=== PATIENT | female | born 1985 | race Caucasian/White ===

== ENCOUNTER 2017-08-27 19:32 | Observation (INO) ==
--- NOTE | 2017-08-27 19:57 | Emergency Department Note ---
Disposition Clinical Impression: Acute cholecystitis, Cholelithiasis Abdominal pain Qualifiers: Abdominal location: epigastric Qualified Code(s): R10.13 - Epigastric pain Disposition: Admitted As Inpatient Condition: Good Referrals: George Colon MD [Primary Care Provider] - Forms: ED Satisfaction Letter, Work/School Release Time of Disposition: 01:15 Abdominal Pain HPI - General Chief Complaint: ED Abdominal Pain Stated Complaint: abdominal pain Time Seen by Provider: 08/27/17 19:55 - History of Present Illness HPI Narrative: 31F c PMHx of PCOS reports to the ED c/o dull achy abdominal pain x 16 hours. Patient reports pain woke her up from sleep at 4am. She reports some nausea, but denies vomiting, Diarrhea, hemaochezia, dysuria, fever, chills. Patient reports she has never had anything like this. She reports she has had burst ovarian cysts in the past but pain was low in abdomen and felt different. She denies any prior surgeries. She reports he mom had her gallbladder removed. Pt Subjective Complaint: abdominal pain Onset (ago): hour(s) (16) Consistency: constant Location: epigastric Pain Scale: 8 Quality: dull Radiation: LUQ, RUQ Migration to: no migration Improves with: nothing Worsens with: nothing Associated symptoms: Reports: nausea. Denies: vomiting, diarrhea, fever, chills , constipation, hematemesis, hematochezia, melena, hematuria, anorexia Treatments prior to arrival: antacids, other (Pepto bismal) - Related Data Allergies Allergy/AdvReac Type Severity Reaction Status Date / Time No Known Allergies Allergy Verified 08/27/17 19:35 All systems ED: reviewed and negative except as stated. Review of Systems: As Per HPI Physical Exam - General Limitations: no limitations General appearance: alert, in no apparent distress - Head Head exam: atraumatic, normocephalic - Eye Eye exam: Present: PERRL, EOMI - ENT ENT exam: normal oropharynx, mucous membranes moist - Neck Neck exam: Present: full ROM. Absent: trachea midline - Chest Chest inspection: Present: symmetric chest wall rise. Absent: tenderness - Respiratory Respiratory exam: Present: normal lung sounds bilaterally. Absent: respiratory distress - Cardiovascular Cardiovascular exam: Present: regular rate, normal rhythm, normal heart sounds - Abdominal Exam Abdominal exam: Present: soft, tenderness Abdominal tenderness: Present: RUQ, LUQ, epigastrium - Extremities Exam Extremities exam: Present: full ROM. Absent: pedal edema - Neurological Exam Neurological exam: Present: alert, oriented X3 - Psychiatric Psychiatric exam: Present: normal affect, normal mood - Skin Skin exam: Present: warm, dry Course Course Narrative: Will check CBC, CMP, Lipase, CT abd/pelvis - Reevaluation(s) Reevaluation #1: Right upper quadrant ultrasound confirms acute cholecystitis. Dr. ireland has accepted the patient to his service. Vital Signs Temperature 97.8 F 08/27/17 19:35 Pulse Rate 90 08/27/17 19:35 Respiratory Rate 17 08/27/17 19:35 Blood Pressure 125/84 08/27/17 19:35 O2 Sat by Pulse Oximetry 96 08/27/17 19:35 Temperature 97.8 F 08/27/17 19:35 Pulse Rate 76 08/28/17 00:51 Respiratory Rate 18 08/28/17 00:51 Blood Pressure 134/58 08/28/17 00:51 O2 Sat by Pulse Oximetry 98 08/28/17 00:51 Oxygen Delivery Oxygen Delivery Room Air Abdominal Pain - Lab Data Result diagrams: 08/27/17 21:05 08/27/17 21:05 Lab Results 08/27/17 08/27/17 08/27/17 Range/Units 19:52 19:52 21:05 WBC 17.0 H (4.3-11.1) K/mcL RBC 4.83 (3.82-4.97) M/mcL Hgb 11.5 (11.5-15.4) g/dL Hct 37.3 (35.3-44.9) % MCV 77.2 L (83.0-100.0) fL MCH 23.8 L (28.0-33.3) pg MCHC 30.8 L (31.6-35.5) g/dL RDW 18.1 H (11.5-14.5) % Plt Count 331 (140-400) K/mcL MPV 9.5 (9.4-12.4) fL Immature Gran % 0.5 (0-4) % Seg Neutrophils % 76.9 % Lymphocytes % 17.2 % Monocytes % 5.1 % Eosinophils % 0.1 % Basophils % 0.2 % Neutrophils # 13.0 H (1.6-8.9) K/mcL Lymphocytes # 2.9 (0.6-4.6) K/mcL Monocytes # 0.9 (0.0-1.3) K/mcL Eosinophils # 0.0 (0.0-0.6) K/mcL Basophils # 0.0 (0.0-0.2) K/mcL Sodium (136-145) mEq/L Potassium (3.5-5.1) mEq/L Chloride (98-107) mEq/L Carbon Dioxide (23-29) mEq/L BUN (6-20) mg/dL Creatinine (0.60-1.20) mg/dL Est GFR ( Amer) (> 60) Est GFR (Non-Af Amer) (> 60) BUN/Creatinine Ratio (6-26) Glucose (70-105) mg/dL Calculated Osmolality (280-300) Calcium (8.6-10.3) mg/dL Total Bilirubin (0.3-1.0) mg/dL AST (13-39) Units/L ALT (7-52) Units/L Alkaline Phosphatase (34-104) Units/L Serum Total Protein (6.4-8.9) g/dL Albumin (3.5-5.7) g/dL Globulin (2.4-3.5) g/dL Albumin/Globulin Ratio (1.1-2.2) Lipase (11-82) Units/L Urine Color Yellow (Yellow) Urine Clarity Clear (Clear) Urine pH 6.0 (5.0-8.0) pH Units Ur Specific [place] > 1.030 H (1.010-1.025) Urine Protein Trace (Neg-Trace) mg/dL Urine Glucose (UA) Normal (Normal) mg/dL Urine Ketones 80 H (Negative) mg/dL Urine Blood Negative (Negative) Urine Nitrite Negative (Negative) Urine Bilirubin Negative (Negative) Urine Urobilinogen Normal (Normal) mg/dL Ur Leukocyte Esterase Small H (Negative) Urine Microscopic RBC 3-5 H (0-3) per hpf Urine Microscopic WBC 15-30 H (0-3) per hpf Ur Squamous Epith Cells Many H (None-Few) per lpf Urine Bacteria Moderate H (None-Few) per hpf Hyaline Casts None Seen (None-Few) per lpf Urine Mucus Moderate H (Few) Urine Yeast Few H (None Seen) per hpf Ur Culture Indicated? NO. A (NO) Urine Test Negative (Negative) 08/27/17 Range/Units 21:05 WBC (4.3-11.1) K/mcL RBC (3.82-4.97) M/mcL Hgb (11.5-15.4) g/dL Hct (35.3-44.9) % MCV (83.0-100.0) fL MCH (28.0-33.3) pg MCHC (31.6-35.5) g/dL RDW (11.5-14.5) % Plt Count (140-400) K/mcL MPV (9.4-12.4) fL Immature Gran % (0-4) % Seg Neutrophils % % Lymphocytes % % Monocytes % % Eosinophils % % Basophils % % Neutrophils # (1.6-8.9) K/mcL Lymphocytes # (0.6-4.6) K/mcL Monocytes # (0.0-1.3) K/mcL Eosinophils # (0.0-0.6) K/mcL Basophils # (0.0-0.2) K/mcL Sodium 135 L (136-145) mEq/L Potassium 3.5 (3.5-5.1) mEq/L Chloride 105 (98-107) mEq/L Carbon Dioxide 22 L (23-29) mEq/L BUN 8 (6-20) mg/dL Creatinine 0.70 (0.60-1.20) mg/dL Est GFR ( Amer) > 60 (> 60) Est GFR (Non-Af Amer) > 60 (> 60) BUN/Creatinine Ratio 11 (6-26) Glucose 103 (70-105) mg/dL Calculated Osmolality 279 L (280-300) Calcium 9.1 (8.6-10.3) mg/dL Total Bilirubin 0.5 (0.3-1.0) mg/dL AST 14 (13-39) Units/L ALT 12 (7-52) Units/L Alkaline Phosphatase 56 (34-104) Units/L Serum Total Protein 7.2 (6.4-8.9) g/dL Albumin 4.0 (3.5-5.7) g/dL Globulin 3.2 (2.4-3.5) g/dL Albumin/Globulin Ratio 1.3 (1.1-2.2) Lipase 15 (11-82) Units/L Urine Color (Yellow) Urine Clarity (Clear) Urine pH (5.0-8.0) pH Units Ur Specific [place] (1.010-1.025) Urine Protein (Neg-Trace) mg/dL Urine Glucose (UA) (Normal) mg/dL Urine Ketones (Negative) mg/dL Urine Blood (Negative) Urine Nitrite (Negative) Urine Bilirubin (Negative) Urine Urobilinogen (Normal) mg/dL Ur Leukocyte Esterase (Negative) Urine Microscopic RBC (0-3) per hpf Urine Microscopic WBC (0-3) per hpf Ur Squamous Epith Cells (None-Few) per lpf Urine Bacteria (None-Few) per hpf Hyaline Casts (None-Few) per lpf Urine Mucus (Few) Urine Yeast (None Seen) per hpf Ur Culture Indicated? (NO) Urine Test (Negative)
[2017-08-27 20:16] LABS: Bilirubin,Urine Negative (Negative); Blood,Urine Negative (Negative); Clarity,Urine Clear (Clear); Color,Urine Yellow (Yellow); Glucose,Urine (UA) Normal (Normal); Ketones,Urine 80 mg/dL (Negative); Leukocyte Esterase,Urine Small (Negative); Nitrite,Urine Negative (Negative); Protein,Urine Trace mg/dL (Neg-Trace); Specific Gravity,Urine > 1.030 (1.010-1.025); Urobilinogen,Urine Normal (Normal)
[2017-08-27 20:19] LABS: Bacteria,Urine Moderate per hpf (None-Few); Hyaline Casts,Urine None Seen per lpf (None-Few); Squamous Epithelial Cell,Urine Many per lpf (None-Few); WBC,Urine 15-30 per hpf (0-3)
[2017-08-27 20:49] LABS: Mucus,Urine Moderate (Few); Yeast,Urine Few per hpf (None Seen)
[2017-08-27 21:17] LABS: Basophils % 0.2 %; Eosinophils % 0.1 %; Hematocrit 37.3 % (35.3-44.9); Hemoglobin 11.5 g/dL (11.5-15.4); Immature Granulocytes % 0.5 % (0-4); Lymphocytes # 2.9 K/mcL (0.6-4.6); Lymphocytes % 17.2 %; Mean Corpuscular HGB Conc 30.8 g/dL (31.6-35.5); Mean Corpuscular Hemoglobin 23.8 pg (28.0-33.3); Mean Corpuscular Volume 77.2 fL (83.0-100.0); Mean Platelet Volume 9.5 fL (9.4-12.4); Monocytes # 0.9 K/mcL (0.0-1.3); Monocytes % 5.1 %; Platelet Count 331 K/mcL (140-400); Red Blood Count 4.83 M/mcL (3.82-4.97); Red Cell Distribution Width 18.1 % (11.5-14.5); Segmented Neutrophils % 76.9 %
[2017-08-27 21:37] LABS: Alanine Aminotransferase 12 Units/L (7-52); Albumin/Globulin Ratio 1.3 (1.1-2.2); Alkaline Phosphatase 56 Units/L (34-104); Aspartate Amino Transferase 14 Units/L (13-39); BUN/Creatinine Ratio 11 (6-26); Bilirubin,Total 0.5 mg/dL (0.3-1.0); Blood Urea Nitrogen 8 mg/dL (6-20); Calcium 9.1 mg/dL (8.6-10.3); Carbon Dioxide 22 mEq/L (23-29); Chloride 105 mEq/L (98-107); Globulin 3.2 g/dL (2.4-3.5); Glucose 103 mg/dL (70-105); Lipase 15 Units/L (11-82); Osmolality,Calculated 279 (280-300); Potassium 3.5 mEq/L (3.5-5.1); Sodium 135 mEq/L (136-145); Total Protein 7.2 g/dL (6.4-8.9); eGFR For African Americans > 60 (> 60); eGFR For Non-African Americans > 60 (> 60)
[2017-08-27] MEDS ORDERED: GI Cocktail 40 ML EACH PO ONE (21:49)
--- NOTE | 2017-08-27 22:42 | Emergency Department Note ---
START Narrative - START START: I examined this patient and my medical decision-making was reviewed with the Resident Physician. I agree with the documented findings, disposition and treatment plan as described except to the extent set forth below. 31-year-old female presents emergency room for upper abdominal pain to the epigastric and right upper quadrant region. Started earlier today yesterday. States she does not want to eat or drink much. Her CT today did not show any significant findings other than she has a known left ovarian cyst which she knows about. No significant lab findings. We will order a galbladder ultrasound. etiologies include possible biliary colic vs PUD
[2017-08-28] MEDS ORDERED: Ondansetron 4 MG/2 ML VIAL IVP ONE ×2 (01:14→19:05)
[2017-08-28] MEDS ORDERED: *HR* FentaNYL (PF) 100 MCG/2 ML VIAL IVP ONE (01:14)
[2017-08-28] MEDS ORDERED: 0.9 % Sodium Chloride 500 ML IVC ONE (02:03)
[2017-08-28] MEDS ORDERED: OXYCODONE Oral CONC 10 MG/0.5 ML ORAL.SYG SL PRN (02:07)
[2017-08-28] MEDS ORDERED: Ondansetron 4 MG/2 ML VIAL IVP PRN ×2 (02:08→20:07)
[2017-08-28] MEDS: Piperacillin/Tazobactam 3.375 GM in 0.9 % Sodium Chloride Mini Bag 100 ML IVPB SCH ×3 (02:30→21:26)
[2017-08-28] MEDS: 0.9 % Sodium Chloride 1,000 ML IVC SCH ×2 (06:04→21:26)
--- NOTE | 2017-08-28 13:03 | General Surg History&Physical ---
Date of Encounter: 08/28/17 Time of Encounter: 07:00 History of Present Illness Chief complaint: Right upper quadrant abdominal pain, acute cholecystitis, cholelithiasis HPI: Ms. Tapia is a 31 year old referred further surgical evaluation after presenting to the [facility] ED with new, abrupt onset abdominal pain early a.m., 08/27. The patient describes progressive pain with anorexia but no emesis. The patient presented to the emergency department after the pain became "unbearable ". There is no recent history of fevers, chills, or diarrhea. On evaluation in the emergency department, patient was notably tender in the right upper quadrant and white count of 17.0, 13.0 neutrophils. Electrolytes, BUN, creatinine, LFTs were all within normal limits. CT abdomen/pelvis was notable for mild atelectasis, suggestion of sludge or tiny stones within the gallbladder ; bowel pattern appeared to be grossly normal; 7.2 x 7.2 cm simple appearing cystic lesion anterior to the uterus adjacent to the left ovary. USGB confirm the presence of cholelithiasis with hydropic distention of the gallbladder and trace pericholecystic fluid. These findings were consistent with acute cholecystitis due to cholelithiasis prompting a referral for surgical intervention. The patient has been admitted to the hospital for further evaluation and surgical intervention. Past medical history: Unremarkable; the patient is aware of the cystic lesion adjacent to the left ovary as she is being seen and evaluated by a fertility specialist. Surgical history: Tonsillectomy and bilateral myringotomies in the remote past Allergies: No known drug allergies Medications: Patient takes no routine medications at home. Social history: G1, P1, normal vaginal delivery; patient has never smoked; she admits to rare alcoholic beverage; she denies any illicit drug use Family history: Mother with cholecystectomy approximately 1 year ago Physical examination: Morbidly obese, age-appropriate female resting comfortably in her hospital bed. He acute symptoms prompting the patient's presentation to the emergency department have subsided. The patient is 1.75 m tall, 143.97 kg; BMI 46.9 The patient is afebrile, most recently 97.9, pulse 82, respirations 14, blood pressure 104/73; SPO2 on room air 93% Skin: Warm, no obvious jaundice Lungs: Clear bilaterally; no obvious abdominal pain with deep inspiration Cardiac: Regular rate, no appreciable murmurs Abdomen: Obese with minimal tenderness in the right upper quadrant. No discernible intra-abdominal masses, hepatosplenomegaly, or rebound. Active bowel sounds Extremities: No obvious clubbing, cyanosis, or edema. CT abdomen/pelvis and ultrasound gallbladder were reviewed with [facility] Labs were reviewed Impression: 31-year-old female referred for further surgical evaluation of abrupt onset right upper quadrant abdominal pain. Clinical findings consistent with acute cholecystitis, cholelithiasis. The of acute symptoms have subsided but not completely resolved. Surgery is recommended. The patient is a reasonable candidate for laparoscopic cholecystectomy but understands an open cholecystectomy may become necessary. Risks of surgery include hemorrhage, infection, intra- abdominal abscess, bile leak, injury to adjacent ducts, vessels, organs, or bowel. Possible postcholecystectomy diarrhea may develop. Other risks include pneumonia/respiratory failure; cardiac dysrhythmia. The patient expressed understanding and is willing to proceed. Surgery has been scheduled for later today. Surgical consent has been obtained. Past Med Surg Social Fam HX - Past Medical History Psychiatric history: no psych history - Social History Smoking Status: Never smoker Alcohol use: occasionally Drug use: none - Family History Maternal Grandmother Hx Family Medical Disorders: Yes (malignant hyperthermia) Medications and Allergies Metformin HCl [Metformin HCl ER] 500 mg PO BID 08/28/17 [History] 3 Allergy/AdvReac Type Severity Reaction Status Date / Time No Known Allergies Allergy Verified 08/27/17 19:35 Review of Systems All systems PM: The remainder of the systems were reviewed and are negative General Surgery Exam Initial Vital Signs Temp Pulse Resp BP Pulse Ox 97.8 F 90 17 125/84 96 08/27/17 19:35 08/27/17 19:35 08/27/17 19:35 08/27/17 19:35 08/27/17 19:35 Results - Labs 08/27/17 21:05 08/27/17 21:05 Abnormal lab results WBC 17.0 K/mcL (4.3-11.1) H 08/27/17 21:05 MCV 77.2 fL (83.0-100.0) L 08/27/17 21:05 MCH 23.8 pg (28.0-33.3) L 08/27/17 21:05 MCHC 30.8 g/dL (31.6-35.5) L 08/27/17 21:05 RDW 18.1 % (11.5-14.5) H 08/27/17 21:05 Neutrophils # 13.0 K/mcL (1.6-8.9) H 08/27/17 21:05 Sodium 135 mEq/L (136-145) L 08/27/17 21:05 Carbon Dioxide 22 mEq/L (23-29) L 08/27/17 21:05 Calculated Osmolality 279 (280-300) L 08/27/17 21:05 Ur Specific [place] > 1.030 (1.010-1.025) H 08/27/17 19:52 Urine Ketones 80 mg/dL (Negative) H 08/27/17 19:52 Ur Leukocyte Esterase Small (Negative) H 08/27/17 19:52 Urine Microscopic RBC 3-5 per hpf (0-3) H 08/27/17 19:52 Urine Microscopic WBC 15-30 per hpf (0-3) H 08/27/17 19:52 Ur Squamous Epith Cells Many per lpf (None-Few) H 08/27/17 19:52 Urine Bacteria Moderate per hpf (None-Few) H 08/27/17 19:52 Urine Mucus Moderate (Few) H 08/27/17 19:52 Urine Yeast Few per hpf (None Seen) H 08/27/17 19:52 Ur Culture Indicated? NO. (NO) A 08/27/17 19:52 All other labs normal.
[2017-08-28] MEDS ORDERED: *HR* Midazolam HCl 2 MG/2 ML VIAL ONE (16:21)
[2017-08-28] MEDS ORDERED: *HR* Propofol 200 MG/20 ML VIAL IVP ONE (16:21)
[2017-08-28] MEDS ORDERED: *HR* FentaNYL (PF) 100 MCG/2 ML VIAL ONE (16:21)
[2017-08-28] MEDS ORDERED: *HR* Rocuronium Bromide 50 MG/5 ML VIAL ONE (16:22)
[2017-08-28] MEDS ORDERED: Dexamethasone 4 MG/ML VIAL ONE (16:22)
[2017-08-28] MEDS ORDERED: Lidocaine -MPF 2% 2 ML VIAL ONE (16:22)
[2017-08-28] MEDS ORDERED: Ondansetron 4 MG/2 ML VIAL ONE (16:22)
[2017-08-28] MEDS ORDERED: *HR* Succinylcholine 200 MG/10 ML VIAL IVP ONE (16:22)
[2017-08-28] MEDS ORDERED: Bupivacaine/EPI 1:200k 0.25%PF 10 ML VIAL INFILT ONE ×2 (16:24→18:17)
[2017-08-28] MEDS ORDERED: Lidocaine -MPF 4% 5 ML AMPUL ONE (16:27)
--- NOTE | 2017-08-28 16:48 | Anesthesia Evaluation PreOp ---
Date of Encounter: 08/28/17 Time of Encounter: 16:46 - Past History Planned Operation: Lap Rhoda Cardiac History: Denies any Significant Hx Pulmonary History: Denies Any Significant HX GEOMAGNETICIAN History: Denies Any Significant HX Other Medical History: Other (PCOS) Anesthesia History: No Prior Anesthetic Complications, Past Anesthesia (T&A, BMT ), MH (POSITIVE FamHx of MH in MATERNAL GRANDMOTHER) : No Test: Positive Alcohol Use: occasionally Drug use: none Medications and Allergies Metformin HCl [Metformin HCl ER] 500 mg PO BID 08/28/17 [History] 3 Allergy/AdvReac Type Severity Reaction Status Date / Time No Known Allergies Allergy Verified 08/27/17 19:35 - Meds/Allergy Pre-op Review Medications Reviewed: Yes Allergies Reviewed: Yes Beta Blockers on Current Med List: No Anesthesia Results - Labs 08/27/17 21:05 08/27/17 21:05 Vital Signs Temp Pulse Resp BP Pulse Ox 08/28/17 14:56 98.3 F 83 13 109/77 97 08/28/17 11:40 97.6 F 78 16 112/77 97 08/28/17 08:15 93 08/28/17 07:29 97.9 F 82 14 104/73 93 08/28/17 01:50 98.4 F 94 15 131/84 99 08/28/17 01:29 18 121/54 08/28/17 00:51 76 18 134/58 98 08/27/17 23:28 85 16 142/58 99 08/27/17 21:20 87 22 126/85 99 08/27/17 20:12 92 16 113/94 97 08/27/17 19:35 97.8 F 90 17 125/84 96 Intake and Output 08/28/17 08/28/17 08/28/17 07:59 15:59 23:59 Intake Total 600 / 600 Output Total 500 / 500 200 / 200 Balance 100 / 100 -200 / -200 Intake: IV Fluids 600 / 600 0.9 % Sodium Chloride 500 ML @ 500 / 500 1875 mls/hr IVC .Q16M ONE Rx#: [id number] Zosyn 3.375 GM In 0.9 % Sodium 100 / 100 Chloride (Mini-Bag +) 100 ML @ 25 mls/hr IVPB Q8HR [facility] Rx#: [id number] Output: Urine 500 / 500 200 / 200 Other: Meal NPO Weight 143.97 kg Blood Glucose* 115 98 Patient Weight 08/28/17 23:59 Weight 143.97 kg Laboratory Results WBC 17.0 K/mcL (4.3-11.1) H 08/27/17 21:05 RBC 4.83 M/mcL (3.82-4.97) 08/27/17 21:05 Hgb 11.5 g/dL (11.5-15.4) 08/27/17 21:05 Hct 37.3 % (35.3-44.9) 08/27/17 21:05 MCV 77.2 fL (83.0-100.0) L 08/27/17 21:05 MCH 23.8 pg (28.0-33.3) L 08/27/17 21:05 MCHC 30.8 g/dL (31.6-35.5) L 08/27/17 21:05 RDW 18.1 % (11.5-14.5) H 08/27/17 21:05 Plt Count 331 K/mcL (140-400) 08/27/17 21:05 MPV 9.5 fL (9.4-12.4) 08/27/17 21:05 Immature Gran % 0.5 % (0-4) 08/27/17 21:05 Seg Neutrophils % 76.9 % 08/27/17 21:05 Lymphocytes % 17.2 % 08/27/17 21:05 Monocytes % 5.1 % 08/27/17 21:05 Eosinophils % 0.1 % 08/27/17 21:05 Basophils % 0.2 % 08/27/17 21:05 Neutrophils # 13.0 K/mcL (1.6-8.9) H 08/27/17 21:05 Lymphocytes # 2.9 K/mcL (0.6-4.6) 08/27/17 21:05 Monocytes # 0.9 K/mcL (0.0-1.3) 08/27/17 21:05 Eosinophils # 0.0 K/mcL (0.0-0.6) 08/27/17 21:05 Basophils # 0.0 K/mcL (0.0-0.2) 08/27/17 21:05 Sodium 135 mEq/L (136-145) L 08/27/17 21:05 Potassium 3.5 mEq/L (3.5-5.1) 08/27/17 21:05 Chloride 105 mEq/L (98-107) 08/27/17 21:05 Carbon Dioxide 22 mEq/L (23-29) L 08/27/17 21:05 BUN 8 mg/dL (6-20) 08/27/17 21:05 Creatinine 0.70 mg/dL (0.60-1.20) 08/27/17 21:05 Est GFR ( Amer) > 60 (> 60) 08/27/17 21:05 Est GFR (Non-Af Amer) > 60 (> 60) 08/27/17 21:05 BUN/Creatinine Ratio 11 (6-26) 08/27/17 21:05 Glucose 103 mg/dL (70-105) 08/27/17 21:05 POC Glucose 98 mg/dL (70-99) 08/28/17 11:39 Calculated Osmolality 279 (280-300) L 08/27/17 21:05 Calcium 9.1 mg/dL (8.6-10.3) 08/27/17 21:05 Total Bilirubin 0.5 mg/dL (0.3-1.0) 08/27/17 21:05 AST 14 Units/L (13-39) 08/27/17 21:05 ALT 12 Units/L (7-52) 08/27/17 21:05 Alkaline Phosphatase 56 Units/L (34-104) 08/27/17 21:05 Serum Total Protein 7.2 g/dL (6.4-8.9) 08/27/17 21:05 Albumin 4.0 g/dL (3.5-5.7) 08/27/17 21:05 Globulin 3.2 g/dL (2.4-3.5) 08/27/17 21:05 Albumin/Globulin Ratio 1.3 (1.1-2.2) 08/27/17 21:05 Lipase 15 Units/L (11-82) 08/27/17 21:05 Urine Color Yellow (Yellow) 08/27/17 19:52 Urine Clarity Clear (Clear) 08/27/17 19:52 Urine pH 6.0 pH Units (5.0-8.0) 08/27/17 19:52 Ur Specific [place] > 1.030 (1.010-1.025) H 08/27/17 19:52 Urine Protein Trace mg/dL (Neg-Trace) 08/27/17 19:52 Urine Glucose (UA) Normal mg/dL (Normal) 08/27/17 19:52 Urine Ketones 80 mg/dL (Negative) H 08/27/17 19:52 Urine Blood Negative (Negative) 08/27/17 19:52 Urine Nitrite Negative (Negative) 08/27/17 19:52 Urine Bilirubin Negative (Negative) 08/27/17 19:52 Urine Urobilinogen Normal mg/dL (Normal) 08/27/17 19:52 Ur Leukocyte Esterase Small (Negative) H 08/27/17 19:52 Urine Microscopic RBC 3-5 per hpf (0-3) H 08/27/17 19:52 Urine Microscopic WBC 15-30 per hpf (0-3) H 08/27/17 19:52 Ur Squamous Epith Cells Many per lpf (None-Few) H 08/27/17 19:52 Urine Bacteria Moderate per hpf (None-Few) H 08/27/17 19:52 Hyaline Casts None Seen per lpf (None-Few) 08/27/17 19:52 Urine Mucus Moderate (Few) H 08/27/17 19:52 Urine Yeast Few per hpf (None Seen) H 08/27/17 19:52 Ur Culture Indicated? NO. (NO) A 08/27/17 19:52 Urine Test Negative (Negative) 08/27/17 19:52 Impressions Abdomen/Pelvis CT 08/27/17 20:42 IMPRESSION: 7.2 x 7.2 cm cystic lesion just anterior to the uterus abutting the left ovary. Findings may be ovarian in origin. Recommend further evaluation with ultrasound. No findings to account for patient's nausea. D/ / Jazmine Kunz MD / Jazmine Kunz MD Interpreting Provider: Jazmine Kunz MD Abdomen Ultrasound 08/27/17 22:26 IMPRESSION: Cholelithiasis with sonographic findings worrisome for early cholecystitis. D/ / Gera Martin MD / Gera Martin MD Interpreting Provider: Gera Martin MD Anesthesia Exam Vital Signs Temp Pulse Resp BP Pulse Ox 08/28/17 14:56 98.3 F 83 13 109/77 97 08/28/17 11:40 97.6 F 78 16 112/77 97 08/28/17 08:15 93 08/28/17 07:29 97.9 F 82 14 104/73 93 08/28/17 01:50 98.4 F 94 15 131/84 99 08/28/17 01:29 18 121/54 08/28/17 00:51 76 18 134/58 98 08/27/17 23:28 85 16 142/58 99 08/27/17 21:20 87 22 126/85 99 08/27/17 20:12 92 16 113/94 97 08/27/17 19:35 97.8 F 90 17 125/84 96 Intake and Output 08/28/17 08/28/17 08/28/17 07:59 15:59 23:59 Intake Total 600 / 600 Output Total 500 / 500 200 / 200 Balance 100 / 100 -200 / -200 Intake: IV Fluids 600 / 600 0.9 % Sodium Chloride 500 ML @ 500 / 500 1875 mls/hr IVC .Q16M ONE Rx#: [id number] Zosyn 3.375 GM In 0.9 % Sodium 100 / 100 Chloride (Mini-Bag +) 100 ML @ 25 mls/hr IVPB Q8HR [facility] Rx#: [id number] Output: Urine 500 / 500 200 / 200 Other: Meal NPO Weight 143.97 kg Blood Glucose* 115 98 Patient Weight 08/28/17 23:59 Weight 143.97 kg Height: 5'9" Weight: 317# BMI = 47 NPO (# of Hours): MNOc Pain Scale Used: Numeric (1 - 10) - HEENT Pupil (Motor): Pupils equal, EOMI Mallampati: II Teeth: Normal Oral Opening: Greater than 3 - GEOMAGNETICIAN LOC: Oriented GEOMAGNETICIAN Motor: Normal RUE, Normal LUE, Normal RLE, Normal LLE, Normal Face GEOMAGNETICIAN Sensory: Normal: RUE, LUE, RLE, LLE, Face - Cardiac Rhythm: Regular Murmur: None - Pulmonary Breath Sounds: bilateral Clear Respiratory Effort: Symmetrical Anesthesia Assess/Plan ASA Score: 3 ([place], PCOS +FamHx of ) Modified [place] Scale for Level of Consciousness: Cooperative, oriented, and tranquil Anesthetic Plan: General Monitoring Plan: Standard Monitors Recovery Plan: PACU Anes Supervising Prov Stmt: Pt seen/evaluated, R&B discussed questions answered and consent obtained. Raul Johnson MD
[2017-08-28] MEDS ORDERED: Isovue-300 50 ML VIAL IVP ONE (16:50)
[2017-08-28] MEDS ORDERED: Propofol 500 MG/50 ML INFUS..BTL ONE ×2 (17:06→19:03)
[2017-08-28] MEDS ORDERED: *HR* Remifentanil 2 MG VIAL IVP ONE (17:11)
[2017-08-28] MEDS ORDERED: Ketorolac 30 MG/ML VIAL ONE (18:51)
[2017-08-28] MEDS ORDERED: Neostigmine Methylsulfate 3 MG/3 ML SYRINGE ONE (18:51)
[2017-08-28] MEDS ORDERED: Acetaminophen IV 1,000 MG/100 ML INFUS..BTL ONE (19:00)
[2017-08-28] MEDS ORDERED: Dexamethasone 4 MG/ML VIAL IVP ONE (19:05)
[2017-08-28] MEDS ORDERED: *HR* Meperidine 25 MG/ML SYRINGE IVP PRN (19:05)
[2017-08-28] MEDS ORDERED: *HR* Labetalol 20 MG/4 ML SYRINGE IVP PRN (19:05)
[2017-08-28] MEDS ORDERED: *HR* Morphine 2 MG/ML SYRINGE IVP PRN (19:05)
[2017-08-28] MEDS ORDERED: *HR* Promethazine 25 MG/ML VIAL IVP PRN (19:05)
[2017-08-28] MEDS ORDERED: Ringers Solution, Lactated 250 ML IVC ONE (19:47)
--- NOTE | 2017-08-28 19:55 | Operative Note ---
Date of procedure: 08/28/17 Pre-op diagnosis: Acute cholecystitis, cholelithiasis Post-op diagnosis: same Procedure: Laparoscopic cholecystectomy, intraoperative cholangiogram Complications: None apparent Anesthesia: GETA Local Anesthetics: 0.25% Sensorcaine HCL with Epinephrine 1:200,000 SubQ (cc) ( 20 mL) Surgeon: Mahad Duke Was there an public health assistant present: No Estimated blood loss (cc): 20 IV fluids (cc): 1,800 Specimen: gallbladder Condition: stable Disposition: PACU Procedure in Detail: The patient was brought to the operating room where she was placed on the procedure table. The patient was appropriately identified as to person and procedure. The accuracy of this information was confirmed by the patient and procedure team. The patient was then intubated and anesthetized under the supervision of Dr. Adry Guillen. The abdomen was prepped and draped in usual sterile fashion. Under anesthesia, the gallbladder was not readily identified. Several milliliters of 0.25% bupivacaine with 1-200,000 units epinephrine was infiltrated supraumbilically. A small transverse incision was made, dissection was extended to the fascia. Additional bupivacaine with epinephrine was infiltrated before the fascia was grasped, elevated, and incised. An 11 mm Xcel port was established. The rigid laparoscope was placed within the obturator to visualize passage through the layers of the anterior abdominal wall. When the abdominal cavity was accessed, the obturator was replaced by the rigid laparoscope, the abdomen was insufflated with gaseous carbon dioxide. There was no obvious visible injury from establishing this port. Under direct visualization 3 additional ports were placed along the right costal margin. Each site was infiltrated with the bupivacaine with epinephrine solution. The gallbladder was tensely distended. Using an 18- gauge laparoscopic needle, approximately 100 mL of a turbid green bile was evacuated. The gallbladder singleton were markedly thickened. Grasping and retracting the gallbladder was facilitated by use of endoscopic Judy clamps. The hepatoduodenal ligament was dissected. The cystic duct was skeletonized and clipped near the infundibulum of the gallbladder. The cystic artery was skeletonized and clipped twice proximally, once distally. A Taut cholangiogram catheter was introduced via a separate percutaneous insertion site. The cystic duct was not sized, the cholangiogram catheter was inserted. Using C-arm fluoroscopy, cholangiogram was then completed. This demonstrated no filling defects and a normal appearing hepatobiliary tree. There was free flow of contrast into the duodenum. [facility] provided an intraoperative reading of this cholangiogram. The cholangiogram catheter was removed, the cystic duct was doubly clipped and divided. The cystic artery was divided at this time. The gallbladder was dissected from the liver bed using an Ethicon harmonic donald. When the gallbladder was from the liver bed, it was placed in an endoscopic pouch and extracted through the supraumbilical port. The gallbladder was retrieved and sent to pathology for analysis. It was inspected for adequate hemostasis. Hemostasis was aided by applying Austin to the liver surface in the gallbladder fossa. Once hemostasis was achieved, the pneumoperitoneum was evacuated, the instrumentation removed. The fascia of the supraumbilical port was closed with interrupted [id number] 0 Vicryl using S retractors. The skin edges of the port sites were approximated with subcuticular 4-0 Vicryl. The incisions were sealed with Dermabond dermal adhesive. The patient was taken to recovery in stable condition. Needle, sponge, and instrument counts were correct at the close of the case. Total volume of 0.25% bupivacaine with 1 200,000 epinephrine, 20 mL.
[2017-08-28] MEDS ORDERED: Acetaminophen 325 MG TABLET PO PRN (20:07)
[2017-08-28] MEDS ORDERED: Ringers Solution, Lactated 1,000 ML IVC SCH (20:07)
[2017-08-28] MEDS ORDERED: *HR* OxyCODONE Immed Rel 5 MG TABLET PO PRN (20:07)
[2017-08-28] MEDS ORDERED: Ringers Solution, Lactated 1,000 ML ONE (20:08)
--- NOTE | 2017-08-28 20:32 | Anesthesia Evaluation Post Op ---
Date of Encounter: 08/28/17 Time of Encounter: 20:35 - Vital Signs Vital Signs: Vital Signs/O2 Sat/Glucose, Most Current Temp Pulse Resp BP Pulse Ox 08/28/17 20:18 99.4 F 77 16 123/68 93 08/28/17 20:08 77 16 123/69 93 08/28/17 19:58 81 16 121/62 97 08/28/17 19:48 97.4 F L 92 14 123/65 100 - Lungs Lungs: Clear Ascult./Percussion - Airway Airway: Non-obstructed - Cardiovascular Regular Rate - Mental Status Mental Status: Alert & Oriented, Answers Appropriately - Pain Pain Scale: 0 - Nausea Vomiting Nausea Vomiting: Not Present - Hydration Hydration: Ice chips - Discharge PostOp Status: Transfer Patient to floor
[2017-08-29 06:27] LABS: Basophils % 0.1 %; Hematocrit 34.7 % (35.3-44.9); Hemoglobin 10.6 g/dL (11.5-15.4); Immature Granulocytes % 0.7 % (0-4); Lymphocytes # 1.2 K/mcL (0.6-4.6); Lymphocytes % 11.3 %; Mean Corpuscular HGB Conc 30.5 g/dL (31.6-35.5); Mean Corpuscular Hemoglobin 23.9 pg (28.0-33.3); Mean Corpuscular Volume 78.2 fL (83.0-100.0); Mean Platelet Volume 9.9 fL (9.4-12.4); Monocytes # 0.5 K/mcL (0.0-1.3); Monocytes % 4.5 %; Neutrophils # 8.8 K/mcL (1.6-8.9); Platelet Count 282 K/mcL (140-400); Red Blood Count 4.44 M/mcL (3.82-4.97); Red Cell Distribution Width 17.8 % (11.5-14.5); Segmented Neutrophils % 83.4 %
[2017-08-29 06:44] LABS: BUN/Creatinine Ratio 12 (6-26); Blood Urea Nitrogen 9 mg/dL (6-20); Calcium 8.6 mg/dL (8.6-10.3); Carbon Dioxide 24 mEq/L (23-29); Chloride 108 mEq/L (98-107); Glucose 141 mg/dL (70-105); Osmolality,Calculated 287 (280-300); Potassium 3.9 mEq/L (3.5-5.1); Sodium 138 mEq/L (136-145); eGFR For African Americans > 60 (> 60); eGFR For Non-African Americans > 60 (> 60)
[2017-08-29 11:14] VITALS: BP 118/77
--- NOTE | 2017-08-29 11:37 | Discharge Summary ---
Outpatient Proc Discharge Plan - Plan Additional Instructions: Regular diet as tolerated Activity as tolerated; lifting limited to less than [address] until at least 24 hours after administration of anesthesia Patient may shower, wash incisions with soap and water Tylenol, ibuprofen, Motrin, Advil, Aleve, etc. as needed for pain Prescription for Percocet 5/325, #16, one every 6 hours as needed for pain not relieved by [id number] medications Outpatient follow-up in the office, , 09/06/17; patient: Office in a.m. to make this appointment. Prescriptions: OxyCODONE/APAP 5/325 [Percocet 5/325 MG] 1 each PO Q6H PRN 4 Days #16 tablet PRN Reason: Pain Home Medications: Metformin HCl [Metformin HCl ER] 500 mg PO BID 08/28/17 [History] Acetaminophen [Tylenol] 650 mg PO Q6H PRN tablet 08/29/17 [Rx] OxyCODONE/APAP 5/325 [Percocet 5/325 MG] 1 each PO Q6H PRN 4 Days #16 tablet [Rx]
--- NOTE | 2017-08-29 11:48 | General Surgery Progress Note ---
Date of Encounter: 08/29/17 Time of Encounter: 11:48 Subjective Patient reports: feels better, pain is less, tolerating a regular diet Narrative: General Surgery _ POD #1 Patient feeling much improved; significant reduction in the patient's preoperative complaints. The patient has remained afebrile, currently 98.6, hemodynamically stable with pulse 82-91, respirations 18, blood pressure 118/77 Lungs: Clear bilaterally; minimal right upper quadrant tenderness on deep inspiration Abdomen: Obese but soft, minimal supraumbilical port site tenderness. Port sites intact, clean and dry Active bowel sounds; patient tolerating regular diet. No postop nausea or vomiting. Laboratories: Leukocytosis resolved, 10.6; hemoglobin 10.6 with hematocrit 34.7 - most likely dilution due to perioperative fluids. Elevated neutrophil count has resolved; electrolytes, BUN, creatinine remain within normal limits. Impression: Acute cholecystitis, cholelithiasis - postoperative day #1 status post laparoscopic cholecystectomy with intraoperative cholangiogram Acceptable postoperative status. Good condition. Plan: Discharge home Patient follow-up in the office in approximately one week Discharge instructions provided. Objective Vital Signs - Last 8 Hours Temp Pulse Resp BP Pulse Ox 08/29/17 11:10 98.6 F 91 18 118/77 95 08/29/17 06:54 98.0 F 82 16 107/66 92 08/29/17 03:57 97.7 F 89 14 103/65 92 Intake and Output 08/28/17 08/29/17 08/29/17 23:59 07:59 15:59 Intake Total 0 / 0 300 / 300 120 / 120 Output Total 320 / 320 Balance -320 / -320 300 / 300 120 / 120 Intake: Oral 0 / 0 300 / 300 120 / 120 Output: Urine 300 / 300 Estimated Blood Loss 20 / 20 Other: Meal NPO NPO Breakfast Percent of Meal Consumed 0% 0% 0% Weight 141.2 kg Patient Weight 08/29/17 23:59 Weight 141.2 kg - Labs 08/29/17 05:35 08/29/17 05:35 Diabetes panel 08/29/17 Range/Units 05:35 Sodium 138 (136-145) mEq/L Potassium 3.9 (3.5-5.1) mEq/L Chloride 108 H (98-107) mEq/L Carbon Dioxide 24 (23-29) mEq/L BUN 9 (6-20) mg/dL Creatinine 0.76 (0.60-1.20) mg/dL Glucose 141 H (70-105) mg/dL Calcium 8.6 (8.6-10.3) mg/dL Calcium panel 08/29/17 Range/Units 05:35 Calcium 8.6 (8.6-10.3) mg/dL Pituitary panel 08/29/17 Range/Units 05:35 Sodium 138 (136-145) mEq/L Potassium 3.9 (3.5-5.1) mEq/L Chloride 108 H (98-107) mEq/L Carbon Dioxide 24 (23-29) mEq/L BUN 9 (6-20) mg/dL Creatinine 0.76 (0.60-1.20) mg/dL Glucose 141 H (70-105) mg/dL Calcium 8.6 (8.6-10.3) mg/dL Adrenal panel 08/29/17 Range/Units 05:35 Sodium 138 (136-145) mEq/L Potassium 3.9 (3.5-5.1) mEq/L Chloride 108 H (98-107) mEq/L Carbon Dioxide 24 (23-29) mEq/L BUN 9 (6-20) mg/dL Creatinine 0.76 (0.60-1.20) mg/dL Glucose 141 H (70-105) mg/dL Calcium 8.6 (8.6-10.3) mg/dL Consult Discharge Plan - Plan Additional Instructions: Regular diet as tolerated Activity as tolerated; lifting limited to less than [address] until at least 24 hours after administration of anesthesia Patient may shower, wash incisions with soap and water Tylenol, ibuprofen, Motrin, Advil, Aleve, etc. as needed for pain Prescription for Percocet 5/325, #16, one every 6 hours as needed for pain not relieved by [id number] medications Outpatient follow-up in the office, , 09/06/17; patient: Office in a.m. to make this appointment. Referrals: George Cloon MD [Primary Care Provider] - Prescriptions: OxyCODONE/APAP 5/325 [Percocet 5/325 MG] 1 each PO Q6H PRN 4 Days #16 tablet PRN Reason: Pain
== END 2017-08-29 13:19 | disposition home or self-care (01) ==
LOC: 3ANU 19:32 → EMEROO 19:32 → 3ANU 08-28 01:31
PROVIDERS: ADMIT Surgery; ATTEND Surgery